=== PATIENT | female | born 1960 | race Caucasian/White ===

== ENCOUNTER 2018-07-08 14:17 | Observation (INO) | payer OTHER ==
[2018-07-08] MEDS ORDERED: NA CHLORIDE 0.9% 2,000 ML ONE (15:25)
[2018-07-08] MEDS ORDERED: MORPHINE 4 MG/ML SYR ONE (15:25)
[2018-07-08] MEDS ORDERED: PROMETHAZINE 25 MG/ML VIAL ONE (15:25)
[2018-07-08] MEDS ORDERED: NA CHLORIDE 0.9% 50 ML IV ONE (15:26)
[2018-07-08 15:59] LABS: ALT/SGPT 177 U/L (12-78); AST/SGOT 120 U/L (15-37); Albumin 4.4 g/dL (3.4-5.0); Alkaline Phosphatase 238 U/L (45-117); BUN Blood Urea Nitrogen 20 mg/dL (7-18); Bicarbonate 29 mmol/L (21-32); Bilirubin Direct 0.4 mg/dL (0-0.2); Bilirubin Total 1.2 mg/dL (0.2-1.0); CKMB Creatine Kinase MB < 1.0 ng/mL (0.3-3.6); Creatine Phosphokinase 141 U/L (26-192); Glucose Level 126 mg/dL (74-106); Lipase 309 U/L (73-393); Potassium 3.2 mmol/L (3.5-5.1); Protein, Total 10.4 g/dL (6.4-8.2); Sodium Level 134 mmol/L (136-145); Troponin (Emerg Dept Use Only) < 0.02 ng/mL (0.0-0.045)
[2018-07-08 16:05] LABS: Absolute Lymphocytes (CBC) 1.7 K/uL (0.7-4.9); Absolute Monocytes 0.8 K/uL (0.1-1.3); Absolute Neutrophil 3.9 K/uL (1.8-8.0); Basophils % 0.4 % (0-1.3); Eosinophils % 0.2 % (0-4.4); Hematocrit 41.2 % (36.0-45.0); Lymphocytes % 26.1 % (15.3-44.8); MPV 7.9 fL (7.6-11.3); Monocytes % 12.3 % (3.3-12.3); RBC Red Blood Cell Count 5.03 M/uL (3.86-4.86)
[2018-07-08 16:12] LABS: Protime INR 1.15
--- NOTE | 2018-07-08 16:30 | RAD REPORT ---
EXAM DESCRIPTION: RAD - Chest Single View - 07/08/2018 4:11 pm CLINICAL HISTORY: Cough, bronchitis, shortness of breath COMPARISON: July 2010 TECHNIQUE: AP portable chest image was obtained 1555 hours . FINDINGS: No focal mass or consolidation. Lung markings are not clearly different from comparison. R ight-sided Port-A-Cath remains in place. Heart and vasculature are normal. No measurable pleural effu sherrell and no pneumothorax. No acute bony abnormality seen. No acute aortic findings suspected. IMPRESSION: No acute cardiopulmonary process. Chest is not significantly different from a 2011 study.
[2018-07-08] MEDS ORDERED: CEFTRIAXONE/SWI 1gm 1 GM/10 ML SYR ONE (17:13)
[2018-07-08] MEDS ORDERED: POTASSIUM CL SA 10 MEQ TAB PO ONE (17:13)
--- NOTE | 2018-07-08 17:33 | ER ---
Nurse's Notes [facility] Name: Mariella Mckinney Age: 57 yrs Sex: Female : 1960 Arrival Date: 07/08/2018 Time: 14:22 Bed 25 Private MD: out of town, doctor Diagnosis: Vomiting;Abdominal and pelvic pain;Hypokalemia Presentation: 07/08 14:38 Presenting complaint: Patient states: Dx w/ bronchitis 06/26, states, " I started ph taking antibiotics but they made me throw up (amoxicillin) so they changed it to a zpack and that has been making me throw up as well." Pt reports productive cough, SOB , N/V, and chest soreness. Transition of care: patient was not received from another setting of care. Onset of symptoms was July 08, 2018. Risk Assessment: Do you want to hurt yourself or someone else? Patient reports no desire to harm self or others. Initial Sepsis Screen: Does the patient meet any 2 criteria? No. Patient's initial sepsis screen is negative. Care prior to arrival: None. 14:38 Method Of Arrival: Ambulatory 14:38 Acuity: QUE 3 ph 20:42 Initial Sepsis Screen: Does the patient have a suspected source of infection? Yes: aj1 Acute abdominal pain. Historical: - Allergies: 14:43 Compazine; ph - Home Meds: 14:43 tizanidine oral oral [Active]; Naproxen Oral [Active]; Promethazine Oral [Active]; ph [place] 10-325 mg Oral tab [Active]; - PMHx: 14:43 Migraines; Chronic pain; ph - PSHx: 14:43 Cholecystectomy; ph - Immunization history:: Adult Immunizations up to date. - Social history:: Smoking status: Patient/guardian denies using tobacco. - Ebola Screening: : No symptoms or risks identified at this time. Screenin:50 Abuse screen: Denies threats or abuse. Denies injuries from another. Nutritional aj1 screening: No deficits noted. Tuberculosis screening: No symptoms or risk factors identified. 20:41 Fall Risk No fall in past 12 months (0 pts). No secondary diagnosis (0 pts). IV access aj1 (20 points). Ambulatory Aid- None/Bed Rest/Nurse Assist (0 pts). Gait- Weak (10 pts.). Mental Status- Oriented to own ability (0 pts). Total Duran Fall Scale indicates Low Risk Score (25-44 pts). As available Patient and Family Educated on Fall Prevention Program and strategies. Assessment: 14:50 General: Appears uncomfortable, ill, Behavior is anxious, restless. Pain: Complains of aj1 pain in face, scalp, chest and abdomen Pain does not radiate. Pain currently is 10 out of 10 on a pain scale. Quality of pain is described as burning, aching, throbbing. Neuro: Level of Consciousness is awake, alert, obeys commands, Oriented to person, place, time, situation. Neuro: Reports headache weakness. Cardiovascular: Reports chest pain, nausea, palpitations, shortness of breath, vomiting, Heart tones S1 S2 present Patient's skin is warm and dry. Rhythm is sinus tachycardia. Respiratory: Reports shortness of breath cough that is productive, persistent. Respiratory: GI: Abdomen is non-distended, Bowel sounds present X 4 quads. Reports lower abdominal pain, upper abdominal pain, intolerance of fluids, intolerance of food, nausea, vomiting. : No signs and/or symptoms were reported regarding the genitourinary system. EENT: No signs and/or symptoms were reported regarding the EENT system. Derm: No signs and/or symptoms reported regarding the dermatologic system. Skin is pink, warm \\T\\ dry. normal. Musculoskeletal: No signs and/or symptoms reported regarding the musculoskeletal system. Circulation, motion, and sensation intact. 15:48 Reassessment: Patient appears in no apparent distress at this time. No changes from aj1 previously documented assessment. Patient and/or family updated on plan of care and expected duration. Pain level reassessed. Patient is alert, oriented x 3, equal unlabored respirations, skin warm/dry/pink. 16:45 Reassessment: Patient and/or family updated on plan of care and expected duration. Pain aj1 level reassessed. General: Appears in no apparent distress. uncomfortable, Behavior is cooperative, restless. Pain: Complains of pain in face, scalp, chest and abdomen. Neuro: Level of Consciousness is awake, alert, obeys commands. Cardiovascular: Patient's skin is warm and dry. Rhythm is sinus rhythm. Respiratory: Airway is patent Respiratory effort is even, unlabored, Respiratory pattern is regular, symmetrical. GI: Abdomen is non-distended. : No signs and/or symptoms were reported regarding the genitourinary system. EENT: No signs and/or symptoms were reported regarding the EENT system. Derm: No signs and/or symptoms reported regarding the dermatologic system. Skin is pink, warm \\T\\ dry. normal. Musculoskeletal: No signs and/or symptoms reported regarding the musculoskeletal system. Circulation, motion, and sensation intact. 17:25 Reassessment: Patient reports nausea, notified Dr. Gomez, order received. aj1 17:30 Reassessment: Dr. Gomez at bedside to place EJ IV access. aj1 17:45 Reassessment: Patient appears in no apparent distress at this time. No changes from aj1 previously documented assessment. Patient and/or family updated on plan of care and expected duration. Pain level reassessed. Patient is alert, oriented x 3, equal unlabored respirations, skin warm/dry/pink. 18:45 Reassessment: Patient and/or family updated on plan of care and expected duration. Pain aj1 level reassessed. General: Appears in no apparent distress. uncomfortable, Behavior is cooperative, restless. Pain: Complains of pain in face, scalp, chest and abdomen. Neuro: Level of Consciousness is awake, alert, obeys commands, Oriented to person, place, time, situation. Cardiovascular: Patient's skin is warm and dry. Rhythm is sinus rhythm. Respiratory: Airway is patent Respiratory effort is even, unlabored, Respiratory pattern is regular, symmetrical. GI: Abdomen is non-distended. : No signs and/or symptoms were reported regarding the genitourinary system. EENT: No signs and/or symptoms were reported regarding the EENT system. Derm: No signs and/or symptoms reported regarding the dermatologic system. Skin is pink, warm \\T\\ dry. normal. Musculoskeletal: No signs and/or symptoms reported regarding the musculoskeletal system. Circulation, motion, and sensation intact. 19:25 Reassessment: Patient reports nausea. Notified Dr. Reyes, order received. aj1 19:45 Reassessment: Patient appears in no apparent distress at this time. No changes from aj1 previously documented assessment. Patient and/or family updated on plan of care and expected duration. Pain level reassessed. Patient is alert, oriented x 3, equal unlabored respirations, skin warm/dry/pink. 20:41 Reassessment: Patient appears in no apparent distress at this time. No changes from aj1 previously documented assessment. Patient and/or family updated on plan of care and expected duration. Pain level reassessed. Patient is alert, oriented x 3, equal unlabored respirations, skin warm/dry/pink. Vital Signs: 14:40 BP 148 / 96; Pulse 114; Resp 18; Temp 97.7; Pulse Ox 98% on R/A; Weight 73.48 kg; ph Height 5 ft. 6 in. (167.64 cm); 15:49 BP 136 / 84; Pulse 103; Resp 20; Pulse Ox 96% on R/A; aj1 16:45 BP 113 / 79; Pulse 83; Resp 18; Pulse Ox 98% ; aj1 17:45 BP 121 / 71; Pulse 96; Resp 18; Pulse Ox 97% ; aj1 18:45 BP 125 / 75; Pulse 92; Resp 18; Pulse Ox 97% ; aj1 19:45 BP 111 / 74; Pulse 85; Resp 18; Pulse Ox 98% on R/A; aj1 14:40 Body Mass Index 26.15 (73.48 kg, 167.64 cm) ph ED Course: 14:22 Patient arrived in ED. sb2 14:23 out of town, doctor is Private Physician. sb2 14:39 Raj Gomez MD is Attending Physician. kdr 14:40 Triage completed. ph 14:43 Arm band placed on Patient placed in an exam room. ph 14:48 June Perez, RN is Primary Nurse. aj1 14:50 Patient has correct armband on for positive identification. Bed in low position. Call aj1 light in reach. Side rails up X 1. advanced manufacturing vice president on. Pulse ox on. NIBP on. 14:50 No provider procedures requiring assistance completed. aj1 15:15 Missed attempt(s): 22 gauge in right antecubital area. Bleeding controlled, band aid mg2 applied, catheter tip intact. 15:20 Missed attempt(s): 24 gauge in right upper arm. Bleeding controlled, band aid applied, mg2 catheter tip intact. 15:45 Missed attempt(s): 24 gauge in left antecubital area. Bleeding controlled, band aid ss applied, catheter tip intact. 15:52 Missed attempt(s): 24 gauge in right upper arm. Bleeding controlled, band aid applied, ss catheter tip intact. 16:10 X-ray completed. Portable x-ray completed in exam room. Patient tolerated procedure ls3 well. 16:11 Chest Single View XRAY In Process Unspecified. EDMS 16:47 Radiology exam delayed due to IV insertion attempt and/or patient not having vm2 appropriate IV at this time. 17:11 Radiology exam delayed due to IV insertion attempt and/or patient not having vm2 appropriate IV at this time. 17:29 Eyad Irwin DO is Hospitalizing Provider. kdr 17:40 CT Abd/Pelvis - W/Contrast In Process Unspecified. EDMS 19:55 Report given to EAN Thurston on 2nd floor. aj1 20:42 Patient admitted, IV remains in place. aj1 Administered Medications: 16:01 Drug: NS 0.9% (30 ml/kg) 30 ml/kg Route: IV; Rate: bolus; Site: right hand; aj1 20:33 Follow up: IV Status: Infusion continued upon admission; IV Intake: 1300ml aj1 16:01 Drug: morphine 4 mg Route: IVP; Site: right hand; aj1 16:30 Follow up: Response: No adverse reaction aj1 16:02 Drug: Phenergan 12.5 mg Route: IVP; Site: right hand; aj1 16:30 Follow up: Response: No adverse reaction aj1 17:28 Drug: Potassium Chloride 40 mEq Route: PO; aj1 18:00 Follow up: Response: No adverse reaction aj1 17:28 Drug: Rocephin - (cefTRIAXone) 1 grams Route: IVPB; Infused Over: 30 mins; Site: right aj1 hand; 17:30 Follow up: IV Status: Completed infusion; IV Intake: 10ml ; Given SIVP per hospital aj1 protocol 17:29 Drug: Zofran 4 mg Route: IVP; Site: right hand; aj1 18:00 Follow up: Response: No adverse reaction aj1 18:36 Drug: Zithromax 500 mg Route: IVPB; Infused Over: 1 hrs; Site: right forearm; aj1 19:40 Follow up: IV Status: Completed infusion; IV Intake: 250ml aj1 19:28 Drug: Zofran 4 mg Route: IVP; Site: right hand; aj1 20:00 Follow up: Response: No adverse reaction aj1 Intake: 17:30 IV: 10ml; Total: 10ml. aj1 19:40 IV: 250ml; Total: 260ml. aj1 20:33 IV: 1300ml; Total: 1560ml. aj1 Outcome: 17:32 Decision to Hospitalize by Provider. kdr 20:43 Admitted to Tele accompanied by tech, via stretcher, with chart. aj1 20:43 Condition: stable 20:43 Discharge instructions given to patient, Instructed on the need for admit, Demonstrated understanding of instructions. 20:43 Patient left the ED. aj1 Signatures: Dispatcher [employer] EDMS June Perez RN RN aj1 Raj Gomez MD MD kdr Smirch, Shelby, RN RN ss Aleyda Enrique RN RN Cande Felix 2 Vi Davalos 2 Chidi Escobar RN RN [facility] Jani Soto ls3 Corrections: (The following items were deleted from the chart) :47 15:39 General: Appears uncomfortable, ill, Behavior is anxious, restless, aj1 :47 15:39 Pain: Complains of pain in face, scalp, chest and abdomen Pain does not radiate. aj1 Pain currently is 10 out of 10 on a pain scale. Quality of pain is described as burning, aching, throbbing, aj07 22: 15:39 Neuro: Level of Consciousness is awake, alert, obeys commands, Oriented to aj1 person, place, time, situation, : 15:39 Cardiovascular: Reports chest pain, nausea, palpitations, shortness of breath, aj1 vomiting, Heart tones S1 S2 present Patient's skin is warm and dry. Rhythm is sinus tachycardia aj07 22: 15:39 Respiratory: aj1 aj07 22: 15:39 Neuro: Reports headache weakness aj1 : 15:39 GI: Abdomen is non-distended, Bowel sounds present X 4 quads. Reports lower aj1 abdominal pain, upper abdominal pain, intolerance of fluids, intolerance of food, nausea, vomiting, aj07 22: 15:39 : No signs and/or symptoms were reported regarding the genitourinary system. aj1aj1 : 15:39 EENT: No signs and/or symptoms were reported regarding the EENT system. aj1 :47 15:39 Derm: No signs and/or symptoms reported regarding the dermatologic system. Skin aj1 is pink, warm \\T\\ dry. normal, [facility] 15:39 Musculoskeletal: No signs and/or symptoms reported regarding the musculoskeletal aj1 system. Circulation, motion, and sensation intact. aj1 15:39 Respiratory: Reports shortness of breath cough that is productive, persistent aj1 aj1 16:47 16:37 Patient moved to [address] 20:37 20:36 Reassessment: Patient reports nausea, notified Dr. Gomez, order received aj1 aj1
--- NOTE | 2018-07-08 17:33 | EDPHYS ---
Physician Documentation [facility] Name: Mariella Mckinney Age: 57 yrs Sex: Female : 1960 Arrival Date: 07/08/2018 Time: 14:22 Bed 25 Private MD: out of town, doctor ED Physician Raj Gomez HPI: 07/08 16:07 This 57 yrs old Female presents to ER via Ambulatory with complaints of kdr Vomiting. 16:07 The patient presents to the emergency department with nausea, that is moderate, kdr vomiting, that is intermittent, diarrhea, that is intermittent, abdominal pain, of the epigastric area, described as achy, crampy, dull, intermittent, and does not radiate. Onset: The symptoms/episode began/occurred gradually, 06/26. Was put on abx fro URI and but immediately began to vomit them up and then was switched to a Z-pack bu that also was vomited up. She states that she has been loosing weight. Possible causes: unknown, antibiotics. The symptoms are aggravated by movement, food , The symptoms are alleviated by nothing. Associated signs and symptoms: Pertinent positives: abdominal pain, nausea, vomiting, Pertinent negatives: constipation, fever. Severity of symptoms: At their worst the symptoms were severe incapacitating in the emergency department the symptoms are unchanged. The patient has not experienced similar symptoms in the past. As noted above. Historical: - Allergies: 14:43 Compazine; ph - Home Meds: 14:43 tizanidine oral oral [Active]; Naproxen Oral [Active]; Promethazine Oral [Active]; ph [place] 10-325 mg Oral tab [Active]; - PMHx: 14:43 Migraines; Chronic pain; ph - PSHx: 14:43 Cholecystectomy; ph - Immunization history:: Adult Immunizations up to date. - Social history:: Smoking status: Patient/guardian denies using tobacco. - Ebola Screening: : No symptoms or risks identified at this time. ROS: 16:07 Constitutional: Negative for fever, chills, and weight loss, Eyes: Negative for injury, kdr pain, redness, and discharge, ENT: Negative for injury, pain, and discharge, Neck: Negative for injury, pain, and swelling, Cardiovascular: Negative for chest pain, palpitations, and edema, Respiratory: Negative for shortness of breath, cough, wheezing, and pleuritic chest pain, Back: Negative for injury and pain, : Negative for injury, bleeding, discharge, and swelling, MS/Extremity: Negative for injury and deformity, Skin: Negative for injury, rash, and discoloration, Psych: Negative for depression, anxiety, suicide ideation, homicidal ideation, and hallucinations, Allergy/Immunology: Negative for hives, rash, and allergies, Endocrine: Negative for neck swelling, polydipsia, polyuria, polyphagia, and marked weight changes, Hematologic/Lymphatic: Negative for swollen nodes, abnormal bleeding, and unusual bruising. 16:07 Abdomen/GI: Positive for abdominal pain, nausea and vomiting, Negative for constipation, abdominal distension, dysphagia, hematemesis, black/tarry stool, rectal pain, rectal bleeding. Exam: 16:07 Constitutional: This is a well developed, well nourished patient who is awake, alert, kdr and in moderate distress. Head/Face: Normocephalic, atraumatic. Eyes: Pupils equal round and reactive to light, extra-ocular motions intact. Lids and lashes normal. Conjunctiva and sclera are non-icteric and not injected. Cornea within normal limits. Periorbital areas with no swelling, redness, or edema. Neck: Trachea midline, no thyromegaly or masses palpated, and no cervical lymphadenopathy. Supple, full range of motion without nuchal rigidity, or vertebral point tenderness. No Meningismus. Chest/axilla: Normal chest wall appearance and motion. Nontender with no deformity. No lesions are appreciated. Cardiovascular: Regular rate and rhythm with a normal S1 and S2. No gallops, murmurs, or rubs. Normal PMI, no JVD. No pulse deficits. Respiratory: Lungs have equal breath sounds bilaterally, clear to auscultation and percussion. No rales, rhonchi or wheezes noted. No increased work of breathing, no retractions or nasal flaring. Back: No spinal tenderness. No costovertebral tenderness. Full range of motion. Skin: Warm, dry with normal turgor. Normal color with no rashes, no lesions, and no evidence of cellulitis. MS/ Extremity: Pulses equal, no cyanosis. Neurovascular intact. Full, normal range of motion. Neuro: Awake and alert, GCS 15, oriented to person, place, time, and situation. Cranial nerves II-XII grossly intact. Motor strength 5/5 in all extremities. Sensory grossly intact. Cerebellar exam normal. Normal gait. Psych: Awake, alert, with orientation to person, place and time. Behavior, mood, and affect are within normal limits. Vital Signs: 14:40 BP 148 / 96; Pulse 114; Resp 18; Temp 97.7; Pulse Ox 98% on R/A; Weight 73.48 kg; ph Height 5 ft. 6 in. (167.64 cm); 15:49 BP 136 / 84; Pulse 103; Resp 20; Pulse Ox 96% on R/A; aj1 16:45 BP 113 / 79; Pulse 83; Resp 18; Pulse Ox 98% ; aj1 17:45 BP 121 / 71; Pulse 96; Resp 18; Pulse Ox 97% ; aj1 18:45 BP 125 / 75; Pulse 92; Resp 18; Pulse Ox 97% ; aj1 19:45 BP 111 / 74; Pulse 85; Resp 18; Pulse Ox 98% on R/A; aj1 14:40 Body Mass Index 26.15 (73.48 kg, 167.64 cm) ph MDM: 16:07 Data reviewed: vital signs, nurses notes, lab test result(s), EKG. Counseling: I had a kdr detailed discussion with the patient and/or guardian regarding: the historical points, exam findings, and any diagnostic results supporting the discharge/admit diagnosis, lab results. 17:32 Patient medically screened. [facility] 07/08 15:06 Order name: Basic Metabolic Panel; Complete Time: 16:04 [facility] 07/08 15:06 Order name: Blood Culture Adult (2) kdr 07/08 15:06 Order name: CBC with Diff; Complete Time: 16:27 kdr 07/08 15:06 Order name: Ckmb; Complete Time: 16:04 kdr 07/08 15:06 Order name: CPK; Complete Time: 16:04 kdr 07/08 15:06 Order name: Lactate; Complete Time: 16:04 kdr 07/08 15:06 Order name: LFT's; Complete Time: 16:04 kdr 07/08 15:06 Order name: Lipase; Complete Time: 16:04 kdr 07/08 15:06 Order name: Procalcitonin; Complete Time: 16:27 kdr 07/08 15:06 Order name: Protime (+inr); Complete Time: 16:27 kdr 07/08 15:06 Order name: Ptt, Activated; Complete Time: 16:27 kdr 07/08 15:06 Order name: Troponin (emerg Dept Use Only); Complete Time: 16:04 kdr 07/08 15:06 Order name: Urine Microscopic Only kdr 07/08 18:02 Order name: Flu dagoberto 07/08 15:06 Order name: Chest Single View XRAY; Complete Time: 16:32 kdr 07/08 15:06 Order name: Accucheck; Complete Time: 16:02 kdr 07/08 15:06 Order name: Cardiac monitoring; Complete Time: 15:32 kdr 07/08 16:33 Order name: CT Abd/Pelvis - W/Contrast; Complete Time: 18:00 kdr 07/08 18:02 Order name: CT Chest Wo Con dagoberto 07/08 18:02 Order name: Strep dagoberto 07/08 19:06 Order name: Lactate Sepsis 2 HR Follow-up EDMS 07/08 19:22 Order name: CT EDMS 07/08 15:06 Order name: EKG - Nurse/Tech; Complete Time: 16:02 kdr 07/08 15:06 Order name: IV Saline Lock - Large Bore; Complete Time: 15:32 kdr 07/08 15:06 Order name: Labs collected and sent; Complete Time: 15:32 kdr 07/08 15:06 Order name: O2 Per Protocol; Complete Time: 15:32 kdr 07/08 15:06 Order name: O2 Sat Monitoring; Complete Time: 15:32 kdr 07/08 15:44 Order name: Labs - recollect needed; Complete Time: 16:01 eb Administered Medications: 16:01 Drug: NS 0.9% (30 ml/kg) 30 ml/kg Route: IV; Rate: bolus; Site: right hand; aj1 20:33 Follow up: IV Status: Infusion continued upon admission; IV Intake: 1300ml aj1 16:01 Drug: morphine 4 mg Route: IVP; Site: right hand; aj1 16:30 Follow up: Response: No adverse reaction aj1 16:02 Drug: Phenergan 12.5 mg Route: IVP; Site: right hand; aj1 16:30 Follow up: Response: No adverse reaction aj1 17:28 Drug: Potassium Chloride 40 mEq Route: PO; aj1 18:00 Follow up: Response: No adverse reaction aj1 17:28 Drug: Rocephin - (cefTRIAXone) 1 grams Route: IVPB; Infused Over: 30 mins; Site: right aj1 hand; 17:30 Follow up: IV Status: Completed infusion; IV Intake: 10ml ; Given SIVP per [facility] protocol 17:29 Drug: Zofran 4 mg Route: IVP; Site: right hand; aj1 18:00 Follow up: Response: No adverse reaction aj1 18:36 Drug: Zithromax 500 mg Route: IVPB; Infused Over: 1 hrs; Site: right forearm; aj1 19:40 Follow up: IV Status: Completed infusion; IV Intake: 250ml aj1 19:28 Drug: Zofran 4 mg Route: IVP; Site: right hand; aj1 20:00 Follow up: Response: No adverse reaction [facility] Disposition: 07/08/18 17:32 Hospitalization ordered by Eyad Irwin for Inpatient Admission. Preliminary diagnosis are Vomiting, Abdominal and pelvic pain, Hypokalemia. - Bed requested for Telemetry/MedSurg (Inpatient). - Status is Inpatient Admission. [facility] - Condition is Fair. - Problem is new. - Symptoms have improved. UTI on Admission? No Signatures: Dispatcher [employer] EDJune Estevez RN RN aj1 Victor Manuel Reyes MD MD cha Rittger, Kevin, MD MD kdr Hall, Patricia, RN RN ph Botello, Elizabeth eb Corrections: (The following items were deleted from the chart) 18:34 17:32 Hospitalization Ordered by Eyad Irwin DO for Inpatient Admission. Preliminary eb diagnosis is Vomiting; Abdominal and pelvic pain; Hypokalemia. Bed requested for Telemetry/MedSurg (Inpatient). Status is Inpatient Admission. Condition is Fair. Problem is new. Symptoms have improved. UTI on Admission? No. kdr 20:43 18:34 07/08/2018 17:32 Hospitalization Ordered by Eyad Irwin DO for Inpatient aj1 Admission. Preliminary diagnosis is Vomiting; Abdominal and pelvic pain; Hypokalemia. Bed requested for Telemetry/MedSurg (Inpatient). Status is Inpatient Admission. Condition is Fair. Problem is new. Symptoms have improved. UTI on Admission? No. eb
[2018-07-08] MEDS ORDERED: ONDANSETRON 4 MG/2 ML VIAL ONE ×2 (17:35→19:32)
--- NOTE | 2018-07-08 17:48 | RAD REPORT ---
EXAM DESCRIPTION: CT - Abdomen Pelvis W Contrast - 07/08/2018 5:39 pm CLINICAL HISTORY: Abdominal pain, vomiting, shortness of breath COMPARISON: None. TECHNIQUE: Biphasic, helical CT imaging of the abdomen and pelvis was performed following 100 ml non -ionic IV contrast. Oral contrast was given. All CT scans are performed using dose optimization technique as appropriate and may include automated exposure control or mA/KV adjustment according to patient size. FINDINGS: No suspicious findings in the lung bases. The liver, spleen, and pancreas show no suspicious findings. Liver shows a mild fatty infiltration. C holecystectomy clips are present. Biliary tree is dilated and extends into the liver. This is probabl y reservoir effect that can occur after cholecystectomy. No focal mass or abnormality of the duodenal C-loop or pancreatic head. Symmetric renal function is seen with no hydronephrosis or suspicious renal mass. No pyelonephritis o r acute parenchymal process. No bladder abnormalities. No adrenal abnormalities. No dilated bowel loops or bowel wall thickening. No free air, free fluid or inflammatory stranding. No hernia, mass or bulky lymphadenopathy. Hyperdensities within the stomach and bowel or are presuma crystal part of ingested medication. Uterus and ovaries show no suspicious findings. No suspicious bony findings. IMPRESSION: Contrast enhanced CT abdomen and pelvis showing no significant or suspicious finding. Liver shows a mild diffuse fatty infiltration. Gallbladder is absent. Biliary tree dilatation is probably reservoir affect. Correlation can be made with any clinical or laboratory findings of biliary obstruction.
--- NOTE | 2018-07-08 18:19 | P.HP ---
Certification for Inpatient Patient admitted to: Inpatient With expected LOS: >2 Midnights Patient will require the following post-hospital care: None Practitioner: I am a practitioner with admitting privileges, knowledge of patient current condition, hospital course, and medical plan of care. Services: Services provided to patient in accordance with Admission requirements found in Title 42 Section 412.3 of the Code of Federal Regulations Patient History Date of Service: 07/08/18 Primary Care Provider: Dr. Awan([place], [place]) Reason for admission: Nausea, vomiting, cough History of Present Illness: 57-year-old female presented to the emergency room with increasing nausea, vomiting and cough. Patient reports that she has had a chronic cough since May. On June 26 she saw her PCP. She was given antibiotics for bronchitis. She was given Augmentin and Zithromax. She start to have increased nausea and vomiting at that time. Her medication was changed to Ceftin. Since then she has not been able to take the medication due to increased nausea and vomiting. She reports increasing cough and congestion. Denies any fever. The patient came to the ER due to poor oral intake. In the ER patient evaluated. She was afebrile. Blood pressure 148/96. Respiratory did was 103. Saturations within normal range. On lab white count 6.4, hemoglobin 14. Sodium 134, potassium 3.2, BUN of 20, creatinine 1.07 with a GFR 53. LFTs were elevated. Troponin unremarkable. Lipase unremarkable. Lactic acid elevated. Pro calcitonin negative. Chest x-ray unremarkable. CT scan did not review any acute changes. Patient was given several treatments for cough, nausea. Patient was admitted for further evaluation. When I saw the patient in the ER she had noticeable nausea and vomiting also cough. Patient with history of migraines and chronic pain. Patient reports no tobacco but secondhand exposure to tobacco by her parents. Home medications list reviewed: Yes - Past Medical/Surgical History Diabetic: No -: Migraines -: Chronic pain -: Right Port-A-Cath Psychosocial/ Personal History: Patient is - Family History Father -: Other (see notes) (Tobacco use) - Social History Smoking Status: Never smoker Alcohol use: No CD- Drugs: No Caffeine use: No Place of Residence: Home Review of Systems General: Weakness, Malaise, As per HPI Eyes: Unremarkable ENT: Unremarkable Respiratory: Cough, Shortness of Breath, SOB with Excertion, As per HPI Cardiovascular: Unremarkable Gastrointestinal: Nausea, Vomiting, Diarrhea, As per HPI Genitourinary: Unremarkable Musculoskeletal: Unremarkable Integumentary: Unremarkable Neurological: As per HPI Lymphatics: Unremarkable Physical Examination - Physical Exam General: Alert, Oriented x3, Cooperative, Mild distress (Patient with increased nausea and vomiting) HEENT: Atraumatic, Normocephalic, Other (Dry mucous membranes) Neck: Supple, No Thyromegaly Respiratory: Crackles/rales (Crackles to the left base) Cardiovascular: Abnormal pulses (Mild sinus tachycardia) Gastrointestinal: Hypoactive (Throughout), Non-distended, No masses, No rebound , No guarding, Tenderness (Mild pain to the left lower quadrant) Musculoskeletal: No erythema, No tenderness, No warmth Integumentary: No tenderness/swelling, No erythema, No warmth, No cyanosis, Other (Dry skin noted) Neurological: Normal speech, Normal strength at 5/5 x4 extr, Normal tone, Normal affect - Studies Laboratory Data (last 24 hrs) 07/08/18 15:55: PT 13.6 H, INR 1.15, APTT 27.3 07/08/18 15:55: WBC 6.4, Hgb 14.3, Hct 41.2, Plt Count 443 H 07/08/18 15:20: Sodium 134 L, Potassium 3.2 L, BUN 20 H, Creatinine 1.07, Glucose 126 H, Total Bilirubin 1.2 H, AST 120 H, ALT 177 H, Alkaline Phosphatase 238 H, Lipase 309 Assessment and Plan - Plan Impression: Intractable nausea and vomiting with noted shortness of breath likely underlying left lower lobe pneumonia Diarrhea with mild abdominal pain suspicious for colitis Elevated liver function tests with noted fatty liver Hyponatremia, hypokalemia and mild renal insufficiency secondary to dehydration Plan: Intractable nausea and vomiting with noted shortness of breath likely underlying left lower lobe pneumonia: Patient admitted for IV fluid hydration. Will provide medication for nausea and vomiting. Chest x-ray unremarkable but patient has noticeable crackles to the bases on the left side. Will order CT chest to further assess. Will check for influenza. Blood cultures obtained. Will also order sputum cultures. Will treat for possible underlying pneumonia with IV Zithromax and Rocephin. Will recheck chest x-ray tomorrow after hydration. Provide medication for cough. Will maintain sats above 90%. Will provide medication for shortness of breath. I will turn the service over to Dr. Merchant tomorrow. I will go over the plan of care with her. Diarrhea with mild abdominal pain suspicious for colitis: Patient with mild diarrhea. Will check for C diff. Will provide medication for pain. CT scan unremarkable for acute abnormality. Elevated liver function tests with noted fatty liver: Will send for hepatitis panel. Will check abdominal ultrasound to further assess. Hyponatremia, hypokalemia and mild renal insufficiency secondary to dehydration : Continue with IV fluids. Will provide medication for nausea. Will monitor electrolytes. Replacement protocol in place. Plan to discharge in: Greater than 2 days - Advance Directives Does patient have a Living Will: No Does patient have a Durable POA for Healthcare: No - Code Status/Comfort Care Code Status Assessed: Yes (Patient full code.) Time Spent Managing Pts Care (In Minutes): 55
[2018-07-08] MEDS ORDERED: AZITHROMYCIN 500 MG/250 ML BAG ONE (18:30)
--- NOTE | 2018-07-08 19:21 | RAD REPORT ---
EXAM DESCRIPTION: CT - Thorax Wo Con - 07/08/2018 7:08 pm CLINICAL HISTORY: Bronchitis, productive cough, shortness of breath COMPARISON: Chest films same date TECHNIQUE: Axial 5 mm thick images of the chest were obtained without IV contrast. All CT scans are performed using dose optimization technique as appropriate and may include automated exposure control or mA/KV adjustment according to patient size. FINDINGS: No focal consolidation or mass. Scattered throughout all lung gomez are small 8-12 mm are as of opacification. No pleural thickening or pleural effusion. No pneumothorax. No abnormal mediastinal or hilar masses or lymphadenopathy seen. No gross aortic or pulmonary artery finding suspected. Assessment is limited in the absence of IV contrast. No chest wall mass or abnormal axillary lymphadenopathy. IMPRESSION: Numerous small infiltrate scattered throughout both lung gomez. This is most likely an infectious etiology representing pneumonitis or atypical pneumonia.
[2018-07-08] MEDS ORDERED: SODIUM CHLORIDE 0.9% 10ML INJ IV PRN (20:45)
[2018-07-08] MEDS ORDERED: ACETAMINOPHEN 500 MG TAB PO PRN (20:45)
[2018-07-08] MEDS ORDERED: ONDANSETRON 4 MG/2 ML VIAL IV PRN (20:45)
[2018-07-08] MEDS ORDERED: BENZONATATE 100 MG CAP PO PRN (20:45)
[2018-07-08] MEDS ORDERED: MORPHINE 2 MG/ML SYR IV PRN (20:45)
[2018-07-08] MEDS ORDERED: ALBUTEROL 2.5 MG/3 ML NEB SOL NEB PRN (20:45)
[2018-07-08] MEDS ORDERED: IPRATROPIUM BROM 0.5MG/2.5ML NEB PRN (20:45)
[2018-07-08] MEDS: NA CHLORIDE 0.9% 1,000 ML IV SCH (21:37)
[2018-07-08] MEDS: MORPHINE 4 MG/ML SYR IV PRN (22:43)
[2018-07-09] MEDS: NA CHLORIDE 0.9% 1,000 ML IV SCH (05:36)
[2018-07-09 06:50] LABS: Urine Appearance CLEAR; Urine Bilirubin NEGATIVE (NEG); Urine Blood NEGATIVE (NEG); Urine Color YELLOW; Urine Glucose NEGATIVE (NEG); Urine Microscopic Reflex ORDER UMIC; Urine Protein NEGATIVE (NEG)
[2018-07-09] MEDS: MORPHINE 4 MG/ML SYR IV PRN (07:03)
[2018-07-09 07:10] LABS: Urine Bacteria <20 /HPF (<20); Urine Culture Reflex Order REFLEXED; Urine RBC <5 /HPF (NONE SEEN)
[2018-07-09 07:32] LABS: Bilirubin Total 0.6 mg/dL (0.2-1.0); Magnesium 2.3 mg/dL (1.8-2.4); Potassium 3.6 mmol/L (3.5-5.1); Protein, Total 7.1 g/dL (6.4-8.2); Thyroid Stimulating Hormone 1.87 uIU/mL (0.360-3.740)
[2018-07-09] MEDS: KCL 20 MEQ/100 mL IVPB 20 MEQ/100 ML BAG IV SCH ×2 (08:00→10:06)
--- NOTE | 2018-07-09 08:24 | RAD REPORT ---
EXAM DESCRIPTION: RAD - Chest Pa And Lat (2 Views) - 07/09/2018 7:24 am CLINICAL HISTORY: Persistent cough and congestion COMPARISON: July [address] chest TECHNIQUE: PA and lateral views of the chest were obtained. FINDINGS: The lungs are normal volume. Chronic interstitial lung disease is present at each base not clearly different from comparison. No progressive process since prior day imaging. Port-A-Cath remai ns in place on the right. The small patchy infiltrative changes seen on CT imaging are poorly visua lized on plain film. Heart size is normal and central vasculature is within normal limits. No pleural effusion or pneumot horax seen. No acute bony finding noted. No aortic abnormality. IMPRESSION: Chronic interstitial lung disease. Patchy pneumonia/pneumonitis changes seen on CT imagi ng are not well visualized on plain film. Chest examination is not substantially different from the portable study of July 08.
[2018-07-09 09:00] LABS: Absolute Lymphocytes (CBC) 1.3 K/uL (0.7-4.9); Absolute Monocytes 0.5 K/uL (0.1-1.3); Basophils % 0.5 % (0-1.3); Eosinophils % 0.6 % (0-4.4); Lymphocytes % 34.7 % (15.3-44.8); MPV 7.9 fL (7.6-11.3); Monocytes % 13.1 % (3.3-12.3); RBC Red Blood Cell Count 3.55 M/uL (3.86-4.86)
[2018-07-09] MEDS ORDERED: CEFTRIAXONE 1 GM/NS 50 ML 1 GM/50 ML BAG IV SCH (09:00)
[2018-07-09] MEDS ORDERED: INFLUENZA VACCINE (for 3y+) 0.5 ML DOSE IMVAC ONE (09:00)
[2018-07-09] MEDS ORDERED: CEFTRIAXONE/SWI 1gm 1 GM/10 ML SYR IV SCH (09:00)
[2018-07-09] MEDS ORDERED: PANTOPRAZOLE 40 MG INJ IVP SCH (09:00)
[2018-07-09] MEDS ORDERED: ENOXAPARIN 40 MG/0.4 ML SQ SCH (09:00)
--- NOTE | 2018-07-09 10:06 | RAD REPORT ---
EXAM DESCRIPTION: US - Abdomen Exam Complete - 07/09/2018 9:39 am CLINICAL HISTORY: Abdominal pain, abnormal LFTs, nausea and vomiting COMPARISON: CT study July 08 FINDINGS: Gallbladder is absent. Common bile duct is prominent with no common duct stone identified. Intrahepatic biliary dilatation is not suspected. Size of the biliary tree is normal for a post chol ecystectomy patient. Liver is enlarged at 18 cm. No capsular nodularity or focal liver lesion. Increa sed cortical echogenicity is present typical for fatty infiltration and matching the CT study. Spleen is 14 cm with no focal splenic lesion. The pancreas is normal. Pancreatic duct is visualized but no t grossly dilated. No duodenal or pancreatic head mass seen on CT or sonography evaluation. No hydronephrosis or suspicious mass in either kidney. Aorta is normal is size. No ascites or bulky lymphadenopathy. No IVC abnormality. IMPRESSION: Enlarged liver at 18 cm with fatty infiltration. No focal liver lesions seen. Biliary tree is prominent but not outside of normal range for a post cholecystectomy patient. No duod enal or pancreatic head mass seen.
--- NOTE | 2018-07-09 11:21 | EKG ---
Test Date: 2018-07-08 Test Time: 15:43:38 Archaeology Professor: MEASUREMENT RESULTS: Intervals: Rate: 105 OR: 130 QRSD: 78 QT: 388 QTc: 512 [place]: P: 82 OR: 130 QRS: 61 T: 79 INTERPRETIVE STATEMENTS: Sinus tachycardia with premature atrial complexes Otherwise normal ECG Compared to ECG 07/18/2010 04:13:30 Atrial premature complex(es) now present Sinus rhythm no longer present Electronically Signed On 07-09-18 11:19:58 WEATHER TEACHER by Ozzy Slade
[2018-07-09] MEDS ORDERED: POTASSIUM CL SA 10 MEQ TAB PO ONE (11:51)
[2018-07-09] MEDS ORDERED: AZITHROMYCIN IV 500 MG in NA CHLORIDE 0.9% 250 ML IVPB SCH (18:00)
--- NOTE | 2018-07-09 19:03 | P.DS ---
Admission Date: 07/08/18 Discharge Date: 07/09/18 Primary Care Provider: Dr. Awan([place], [place]) Disposition: ROUTINE DISCHARGE Discharge Condition: GOOD Reason for Admission: Nausea, vomiting, cough - Problems (1) Intractable nausea and vomiting Status: Resolved Qualifiers: Vomiting type: unspecified Qualified Code(s): R11.2 - Nausea with vomiting , unspecified (2) Chronic bronchitis with productive mucopurulent cough Status: Acute Brief History of Present Illness: 57-year-old female presented to the emergency room with increasing nausea, vomiting and cough. Patient reports that she has had a chronic cough since May. On June 26 she saw her PCP. She was given antibiotics for bronchitis. She was given Augmentin and Zithromax. She start to have increased nausea and vomiting at that time. Her medication was changed to Ceftin. Since then she has not been able to take the medication due to increased nausea and vomiting. She reports increasing cough and congestion. Denies any fever. The patient came to the ER due to poor oral intake. In the ER patient evaluated. She was afebrile. Blood pressure 148/96. Respiratory did was 103. Saturations within normal range. On lab white count 6.4, hemoglobin 14. Sodium 134, potassium 3.2, BUN of 20, creatinine 1.07 with a GFR 53. LFTs were elevated. Troponin unremarkable. Lipase unremarkable. Lactic acid elevated. Pro calcitonin negative. Chest x-ray unremarkable. CT scan did not review any acute changes. Patient was given several treatments for cough, nausea. Patient was admitted for further evaluation. When I saw the patient in the ER she had noticeable nausea and vomiting also cough. Patient with history of migraines and chronic pain. Patient reports no tobacco but secondhand exposure to tobacco by her parents. Hospital Course: Overall during the hospital course patient remained stable Patient was initially admitted to the hospital for having intractable nausea vomiting secondary to chronic cough secondary to bronchitis. patient was started on duo nebs had marked improvement in her symptoms and thus was discharged home under stable condition. Patient was able to tolerate her oral diet well and her cough has stabilized. Patient also was given a prescription for over the counter Robitussin however to be cautious with it due to elevated transaminitis most likely secondary to fatty infiltration. Patient demonstrated understanding and thus was discharged home under stable condition. Blood culture sputum culture and blood culture were all negative for any acute abnormality at this time. Vital Signs/Physical Exam: Temp Pulse Resp BP Pulse Ox 97.9 F 85 20 116/56 L 94 07/09/18 12:00 07/09/18 12:00 07/09/18 12:00 07/09/18 12:00 07/09/18 12:00 General: Alert, In no apparent distress HEENT: Atraumatic, PERRLA, EOMI Neck: Supple, JVD not distended Respiratory: Clear to auscultation bilaterally, Normal air movement Cardiovascular: Regular rate/rhythm, Normal S1 S2 Gastrointestinal: Normal bowel sounds, No tenderness Musculoskeletal: No tenderness Integumentary: No rashes Neurological: Normal speech, Normal tone, Normal affect Lymphatics: No axilla or inguinal lymphadenopathy Laboratory Data at Discharge: WBC 3.9 K/uL (4.3-10.9) L D 07/09/18 06:55 Hgb 10.1 g/dL (12.0-15.0) L D 07/09/18 06:55 Hct 30.0 % (36.0-45.0) L D 07/09/18 06:55 Plt Count 311 K/uL (152-406) D 07/09/18 06:55 PT 13.6 SECONDS (9.5-12.5) H 07/08/18 15:55 INR 1.15 07/08/18 15:55 APTT 27.3 SECONDS (24.3-36.9) 07/08/18 15:55 Sodium 140 mmol/L (136-145) 07/09/18 06:55 Potassium 3.6 mmol/L (3.5-5.1) 07/09/18 06:55 BUN 12 mg/dL (7-18) 07/09/18 06:55 Creatinine 0.85 mg/dL (0.55-1.3) 07/09/18 06:55 Glucose 121 mg/dL (74-106) H 07/09/18 06:55 Magnesium 2.3 mg/dL (1.8-2.4) 07/09/18 06:55 Total Bilirubin 0.6 mg/dL (0.2-1.0) 07/09/18 06:55 AST 55 U/L (15-37) H 07/09/18 06:55 ALT 99 U/L (12-78) H 07/09/18 06:55 Alkaline Phosphatase 154 U/L (45-117) H 07/09/18 06:55 Lipase 309 U/L (73-393) 07/08/18 15:20 Home Medications: Albuterol Inhaler [Ventolin Inhaler*] 1 puff IH Q4H PRN 07/08/18 Hydrocodone 10/APAP 325 [[place] 10/325*] 1 tab PO BID PRN 07/08/18 Naproxen [Naprosyn] 500 mg PO BID 07/08/18 Promethazine HCl 25 mg PO Q6HR 07/08/18 Tizanidine HCl 4 mg PO TID PRN 07/08/18 levoFLOXacin [Levaquin] 500 mg PO DAILY #10 tab 07/09/18 New Medications: levoFLOXacin [Levaquin] 500 mg PO DAILY #10 tab Patient Discharge Instructions: Please f.u with PCP and GI in 1 to 2 week post discharge. New medication. Levaquin 500mg Daily for 10 day s Diet: Regular Activity: Ad rei
[2018-07-11 21:26] LABS: HBsAG Nonreactive (Nonreactive); Hepatitis A IgM Antibody Nonreactive
== END 2018-07-09 16:40 | disposition home or self-care (01) ==
LOC: ER 14:17 → ERHOLD 18:04 → INTOOBSV 18:04 → 2ND 20:07
PROVIDERS: ADMIT Family Medicine; ATTEND Family Medicine
DX: R11.2 Nausea with vomiting, unspecified (principal); R05 Cough; J42 Unspecified chronic bronchitis; Z23 Encounter for immunization; E87.1 Hypo-osmolality and hyponatremia; E86.0 Dehydration; N28.9 Disorder of kidney and ureter, unspecified; E87.6 Hypokalemia
CPT/HCPCS: 36415; 71045; 71046; 71250; 74177; 76700; 80048; 80053; 80074; 80076; 82550; 82553; 83605 ×3; 83690; 83735; 84145; 84439; 84443; 84484; 85025 ×2; 85610; 85730; 87040 ×2; 87070; 87081; 87086; 87088; 87804 ×2; 93005; 94640; 96361; 96365; 96375; 99285; C9113; G0008; G0378 ×2; J0456; J0696 ×2; J1650; J2405 ×3; J2550; J7030 ×3; Q2035; Q9967; 81003; 81015